=== PATIENT | female | born 1950 | race Caucasian/White ===

== ENCOUNTER 2017-06-07 08:53 | Day surgery (SDC) | payer MEDICARE, BC ==
[~2017-06-07 08:53] MED LIST: LIDOCAINE HCL 1% MPF SOL ONE; PROPOFOL 500 MG/50 ML EMU IV ONE
[2017-06-07] MEDS ORDERED: GLYCOPYRROLATE 0.2 MG/ML SOL ONE (11:07)
[2017-06-07 11:18] VITALS: TEMP 98.4
[2017-06-07 11:46] VITALS: BP 112/60; PULSE 62; RESP 18; O2SAT 99
== END 2017-06-07 12:00 | disposition home or self-care (01) | DRG 951 ==
LOC: SURG 08:53
PROVIDERS: ATTEND Internal Medicine Gastroenterology
DX: Z12.11 Encounter for screening for malignant neoplasm of colon (principal); K64.8 Other hemorrhoids
CPT/HCPCS: G0121; J7643; J2001; J2704